=== PATIENT | male | born 1990 | race African-American/Black ===

== ENCOUNTER 2020-03-13 23:19 | Emergency (ER) | payer MEDICAID ==
[~2020-03-13] VITALS: Ht 182.9 cm; Wt 114.0 kg
[2020-03-13 23:29] VITALS: BP 129/91
[2020-03-14] MEDS ORDERED: LIDOCAINE 1%/EPI 1:100,000 10 ML VIAL IJ ONE (03:45)
[2020-03-14] MEDS ORDERED: ACETAMINOPHEN WITH CODEINE 300/30MG TABLET PO ONE (03:45)
[2020-03-14] MEDS ORDERED: TETANUS, DIPHTHERIA, PERTUSSIS VAC/PF 0.5ML (>7YR OLD) IM ONE (03:45)
[2020-03-14] MEDS ORDERED: BACITRACIN ZINC OINT UDPKT TOP ONE (03:45)
== END 2020-03-14 05:15 | disposition home or self-care (01) ==
LOC: ER 23:19
DX: S81.812A Laceration without foreign body, left lower leg, initial encounter (principal); W26.8XXA Contact with other sharp object(s), not elsewhere classified, initial encounter; Y93.89 Activity, other specified; Y92.89 Other specified places as the place of occurrence of the external cause
CPT/HCPCS: 12002; 73562; 90471; 90715; 99283; J3490

== ENCOUNTER 2020-03-17 15:15 | Emergency (ER) | payer MEDICAID ==
[~2020-03-17] VITALS: Ht 182.9 cm; Wt 111.0 kg
[2020-03-17 15:20] VITALS: BP 141/88
== END 2020-03-17 15:59 | disposition home or self-care (01) ==
LOC: ER 15:15
DX: S81.812D Laceration without foreign body, left lower leg, subsequent encounter (principal); X58.XXXD Exposure to other specified factors, subsequent encounter; J45.909 Unspecified asthma, uncomplicated
CPT/HCPCS: 99281

== ENCOUNTER 2020-04-01 10:24 | Emergency (ER) | payer MEDICAID ==
[~2020-04-01] VITALS: Ht 182.9 cm; Wt 111.0 kg
[2020-04-01 10:40] VITALS: BP 133/86
== END 2020-04-01 11:38 | disposition home or self-care (01) ==
LOC: ER 10:24
DX: Z48.02 Encounter for removal of sutures (principal)
CPT/HCPCS: 99282

== ENCOUNTER 2020-08-11 17:30 | Emergency (ER) | payer MEDICAID | END 2020-08-11 17:37 | disposition left against medical advice (07) | LOC: ER 17:30 | DX: R06.02 Shortness of breath (principal); Z53.21 Procedure and treatment not carried out due to patient leaving prior to being seen by health care provider ==

== ENCOUNTER 2022-08-23 14:07 | Emergency (ER) | payer MEDICAID ==
[~2022-08-23] VITALS: Ht 182.9 cm; Wt 106.0 kg
[2022-08-23 14:19] VITALS: BP 148/100
[2022-08-23] MEDS ORDERED: NAPR-1176 PO (17:48)
[2022-08-23] MEDS ORDERED: BUTE12CR2 TP (17:48)
[2022-08-23] MEDS ORDERED: ALBU6.7H3 INH (17:48)
== END 2022-08-23 18:08 | disposition home or self-care (01) ==
LOC: ER 14:07
DX: S90.31XA Contusion of right foot, initial encounter (principal); W21.31XA Struck by shoe cleats, initial encounter; Y93.89 Activity, other specified; Y92.89 Other specified places as the place of occurrence of the external cause; Y99.8 Other external cause status; J45.909 Unspecified asthma, uncomplicated
CPT/HCPCS: 73630; 99283

== ENCOUNTER 2023-04-07 11:22 | Emergency (ER) | payer MEDICAID ==
[~2023-04-07] VITALS: Ht 185.4 cm; Wt 98.0 kg
[~2023-04-07 11:22] MED LIST: ALBU6.7H3 INH; BUTE12CR2 TP; NAPR-1176 PO
[2023-04-07 11:28] VITALS: BP 142/99; PULSE 66; RESP 16; TEMP 98.7; O2SAT 96
[2023-04-07] MEDS ORDERED: ALBU6.7H15 INH (12:34)
== END 2023-04-07 13:19 | disposition home or self-care (01) ==
LOC: ER 11:22
DX: K62.5 Hemorrhage of anus and rectum (principal); J45.909 Unspecified asthma, uncomplicated
CPT/HCPCS: 99283

== ENCOUNTER 2023-08-19 09:37 | Emergency (ER) | payer MEDICAID ==
[~2023-08-19] VITALS: Ht 182.9 cm; Wt 100.0 kg
[~2023-08-19 09:37] MED LIST changes: +ALBU6.7H15 INH
[2023-08-19 09:52] VITALS: BP 137/97; RESP 18; TEMP 98; O2SAT 99
[2023-08-19 09:53] VITALS: PULSE 88
[2023-08-19] MEDS ORDERED: ALBU6.7H15 INH (10:43)
== END 2023-08-19 10:10 | disposition home or self-care (01) ==
LOC: ER 09:37
DX: R06.02 Shortness of breath (principal); J45.909 Unspecified asthma, uncomplicated; Z76.0 Encounter for issue of repeat prescription
CPT/HCPCS: 99281

== ENCOUNTER 2023-12-23 02:19 | Emergency (ER) | payer MEDICAID ==
[~2023-12-23] VITALS: Ht 185.4 cm; Wt 82.0 kg
[2023-12-23 02:21] VITALS: TEMP 98.2
[2023-12-23 03:33] LABS: BASOPHILS % 0.8 % (0.0-2.0); EOSINOPHILS % 6.6 % (0.0-5.0); HEMATOCRIT. 47.2 % (42.0-52.0); HEMOGLOBIN. 15.7 g/dL (14.0-18.0); LYMPHOCYTES % 34.5 % (20.0-50.0); MEAN CORPUSCULAR HEMOGLOBIN 31.3 pg (28.0-32.0); MEAN CORPUSCULAR HGB CONC 33.2 g/dL (31.0-37.0); MEAN CORPUSCULAR VOLUME 94.2 fL (80.0-94.0); MONOCYTES % 8.6 % (2.0-8.0); NEUTROPHILS % 49.5 % (40.0-76.0); PLATELET 212 x1000/uL (130-400); RED BLOOD CELL COUNT 5.01 mill/uL (4.7-6.1); RED CELL DISTRIBUTION WIDTH 14.5 % (11.6-14.6)
[2023-12-23 03:41] LABS: CHLORIDE 108 mEq/L (98-107); POTASSIUM 3.3 mEq/L (3.5-5.1); SODIUM 138 mEq/L (136-145)
[2023-12-23 03:42] LABS: CALCIUM 9.1 mg/dL (8.7-10.4); CARBON DIOXIDE 23 mEq/L (21-32)
[2023-12-23 03:47] LABS: CREATININE 0.9 mg/dL (0.6-1.3); GLUCOSE 94 mg/dL (70-105); UREA NITROGEN BLOOD 10 mg/dL (9-23)
[2023-12-23] MEDS: METHYLPREDNISOLONE SOD SUCC 125MG/2ML (ACT-O-VIAL) IV STA (03:58)
[2023-12-23] MEDS: MAGNESIUM 2 G PREMIX 50 ML IV STA (03:58)
[2023-12-23 04:09] VITALS: PULSE 86; RESP 22; O2SAT 96
[2023-12-23] MEDS: IPRATROPIUM BROMIDE (0.02%) 0.5MG/2.5ML NEB HHN STA (04:09)
[2023-12-23] MEDS: ALBUTEROL (0.083%) 2.5MG/3ML NEB HHN STA (04:10)
[2023-12-23] MEDS ORDERED: P20 MT (06:26)
[2023-12-23] MEDS ORDERED: ALBU6.7H15 INH (06:26)
[2023-12-23 06:46] VITALS: BP 133/67; PULSE 83; RESP 17
== END 2023-12-23 06:47 | disposition home or self-care (01) ==
LOC: ER 02:19
DX: J45.909 Unspecified asthma, uncomplicated (principal); F12.90 Cannabis use, unspecified, uncomplicated
CPT/HCPCS: 80048; 85025; 36415; 71045; 93005; 96365; 96375; 99285; J3475; J2919; Z7610 ×3

== ENCOUNTER 2024-01-18 10:11 | Emergency (ER) | payer MEDICAID ==
[~2024-01-18] VITALS: Ht 182.9 cm; Wt 104.3 kg
[~2024-01-18 10:11] MED LIST changes: +P20 MT
[2024-01-18 10:26] VITALS: BP 146/105; PULSE 77; RESP 16; TEMP 98.1; O2SAT 98
[2024-01-18] MEDS ORDERED: ALBU6.7H15 INH (11:01)
[2024-01-18] MEDS ORDERED: P50 MT (11:01)
[2024-01-18] MEDS ORDERED: ALBU2.5V13 NEB (11:01)
== END 2024-01-18 11:26 | disposition home or self-care (01) ==
LOC: ER 10:20
DX: J45.901 Unspecified asthma with (acute) exacerbation (principal); Z76.0 Encounter for issue of repeat prescription; F12.90 Cannabis use, unspecified, uncomplicated
CPT/HCPCS: 99283

== ENCOUNTER 2024-03-19 11:44 | Emergency (ER) | payer MEDICAID ==
[~2024-03-19] VITALS: Ht 182.9 cm; Wt 97.5 kg
[~2024-03-19 11:44] MED LIST changes: +ALBU2.5V13 NEB; +P50 MT
[2024-03-19 11:53] VITALS: BP 138/87; O2SAT 96
[2024-03-19] MEDS: IPRATROPIUM BROMIDE (0.02%) 0.5MG/2.5ML NEB HHN STA (12:45)
[2024-03-19 12:46] VITALS: PULSE 72; RESP 20
[2024-03-19] MEDS: ALBUTEROL (0.083%) 2.5MG/3ML NEB HHN STA (12:46)
[2024-03-19] MEDS: PREDNISONE 20MG TABLET PO STA (13:06)
[2024-03-19] MEDS ORDERED: ALBU18HF2 IH (13:21)
[2024-03-19] MEDS ORDERED: P20 MT (13:21)
[2024-03-19] MEDS ORDERED: ALBU05 NEB (13:21)
[2024-03-19 13:43] VITALS: PULSE 72; RESP 20; TEMP 36.78072; O2SAT 96
== END 2024-03-19 13:47 | disposition home or self-care (01) ==
LOC: ER 11:44
DX: J45.901 Unspecified asthma with (acute) exacerbation (principal); F12.90 Cannabis use, unspecified, uncomplicated; Z79.899 Other long term (current) drug therapy; Z76.0 Encounter for issue of repeat prescription
CPT/HCPCS: 94644; 99285; J7512; Z7610 ×2; 94640

== ENCOUNTER 2024-05-10 16:04 | Inpatient (IN) | payer MEDICAID ==
[~2024-05-10] VITALS: Ht 182.9 cm; Wt 102.1 kg
[~2024-05-10 16:04] MED LIST changes: +ALBU05 NEB; +ALBU18HF2 IH
[2024-05-10 19:07] LABS: HEMATOCRIT. 50.9 % (42.0-52.0); HEMOGLOBIN. 17.3 g/dL (14.0-18.0); MEAN CORPUSCULAR HEMOGLOBIN 31.8 pg (28.0-32.0); MEAN CORPUSCULAR HGB CONC 33.9 g/dL (31.0-37.0); MEAN CORPUSCULAR VOLUME 93.9 fL (80.0-94.0); MEAN PLATELET VOLUME 9.1 fl (7.4-10.4); PLATELET 222 x1000/uL (130-400); RED BLOOD CELL COUNT 5.42 mill/uL (4.7-6.1); RED CELL DISTRIBUTION WIDTH 13.8 % (11.6-14.6)
[2024-05-10 19:09] LABS: DIFFERENTIAL COMMENT 1
[2024-05-10 19:15] LABS: CHLORIDE 105 mEq/L (98-107); POTASSIUM 3.7 mEq/L (3.5-5.1); SODIUM 138 mEq/L (136-145)
[2024-05-10] MEDS: ALBUTEROL (0.083%) 2.5MG/3ML NEB HHN SCH (19:15)
[2024-05-10] MEDS: IPRATROPIUM BROMIDE (0.02%) 0.5MG/2.5ML NEB HHN STA (19:15)
[2024-05-10] MEDS: DEXAMETHASONE 4MG/ML 1ML VIAL IV ONE (19:15)
[2024-05-10 19:16] LABS: CALCIUM 9.9 mg/dL (8.7-10.4); CARBON DIOXIDE 25 mEq/L (21-32)
[2024-05-10 19:21] LABS: GLUCOSE 118 mg/dL (70-105); UREA NITROGEN BLOOD 11 mg/dL (9-23)
[2024-05-10 19:29] LABS: ATYPICAL LYMPHOCYTES 7
[2024-05-10 19:30] LABS: PLATELET ESTIMATE NORMAL
[2024-05-10 20:39] VITALS: PULSE 78; RESP 20; O2SAT 98
[2024-05-10 20:49] VITALS: PULSE 76; RESP 20; O2SAT 98
[2024-05-11] VITALS (12 sets, daily range): BP systolic 122–160; BP diastolic 77–97; PULSE 67–91; RESP 16–22; TEMP 32.5026–36.89184; O2SAT 92–99
[2024-05-11] MEDS ORDERED: ONDANSETRON HCL 4MG/2ML INJ IV PRN
[2024-05-11] MEDS ORDERED: HYDROCODONE/ACETAMINOPHEN 5/325MG TABLET PO PRN
[2024-05-11] MEDS: ACETAMINOPHEN 325MG TABLET PO PRN (00:01)
[2024-05-11] MEDS ORDERED: ALBU18HF2 (00:42)
[2024-05-11] MEDS: CLONIDINE 0.1MG TABLET PO PRN (01:05)
[2024-05-11] MEDS: METHYLPREDNISOLONE SOD SUCC 40MG/ML (ACT-O-VIAL) IV SCH (01:19)
[2024-05-11] MEDS: IPRATROPIUM/ALBUTEROL 0.5-3(2.5)MG/3ML NEB HHN SCH (03:34)
[2024-05-11] MEDS: ENOXAPARIN 30MG/0.3ML SYR SUBCUT SCH (08:45)
[2024-05-11 09:18] LABS: *AMPHETAMINES SCREEN URINE NEGATIVE (NEGATIVE); *BENZODIAZEPINES SCREEN URINE NEGATIVE (NEGATIVE)
[2024-05-11 09:19] LABS: *BARBITURATES SCREEN URINE NEGATIVE (NEGATIVE); *COCAINE SCREEN URINE NEGATIVE (NEGATIVE); CANNABINOID URINE SCREEN PRESUMPTIVE POSITIVE (NEGATIVE); ECSTASY MDMA SCREEN URINE NEGATIVE (NEGATIVE); METHADONE URINE SCREEN NEGATIVE (NEGATIVE); OPIATES URINE SCREEN NEGATIVE (NEGATIVE); PHENCYCLIDINE URINE SCREEN NEGATIVE (NEGATIVE)
[2024-05-11 14:28] LABS: BASOPHILS % 0.3 % (0.0-2.0); EOSINOPHILS % 0.1 % (0.0-5.0); HEMATOCRIT. 51.8 % (42.0-52.0); HEMOGLOBIN. 17.3 g/dL (14.0-18.0); LYMPHOCYTES % 13.8 % (20.0-50.0); MEAN CORPUSCULAR HEMOGLOBIN 31.4 pg (28.0-32.0); MEAN CORPUSCULAR HGB CONC 33.5 g/dL (31.0-37.0); MEAN CORPUSCULAR VOLUME 93.8 fL (80.0-94.0); MEAN PLATELET VOLUME 8.9 fl (7.4-10.4); MONOCYTES % 3.7 % (2.0-8.0); NEUTROPHILS % 82.1 % (40.0-76.0); PLATELET 233 x1000/uL (130-400); RED BLOOD CELL COUNT 5.52 mill/uL (4.7-6.1); RED CELL DISTRIBUTION WIDTH 13.5 % (11.6-14.6); WHITE BLOOD COUNT 6.4 x1000/uL (4.5-11.0)
[2024-05-11 14:33] LABS: CHLORIDE 107 mEq/L (98-107); SODIUM 138 mEq/L (136-145)
[2024-05-11 14:34] LABS: CALCIUM 10.3 mg/dL (8.7-10.4); CARBON DIOXIDE 23 mEq/L (21-32)
[2024-05-11 14:39] LABS: CREATININE 1.1 mg/dL (0.6-1.3); GLUCOSE 106 mg/dL (70-105); UREA NITROGEN BLOOD 14 mg/dL (9-23)
[2024-05-11] MEDS ORDERED: NALOXONE HCL 0.4MG/ML VIAL IV PRN (16:00)
[2024-05-11] MEDS: MONTELUKAST SODIUM 10MG TABLET PO SCH (16:49)
[2024-05-11] MEDS: ZOLPIDEM TARTRATE 5MG TABLET PO PRN (21:29)
[2024-05-12] VITALS (7 sets, daily range): BP systolic 115–132; BP diastolic 74–90; PULSE 73–94; RESP 18–20; TEMP 36.50292–37.61412; O2SAT 94–98
[2024-05-12] MEDS: METHYLPREDNISOLONE SOD SUCC 40MG/ML (ACT-O-VIAL) IV SCH (00:12)
[2024-05-12] MEDS: BUDESONIDE 0.5MG/2ML NEB INH SCH (04:00)
[2024-05-12] MEDS: FAMOTIDINE 20MG/2ML VIAL IV SCH (08:14)
[2024-05-12] MEDS ORDERED: MONT-46 MT (13:22)
[2024-05-12] MEDS ORDERED: P20 MT (13:22)
[2024-05-12] MEDS ORDERED: FLUT1DIS3 INH (13:22)
[2024-05-12] MEDS ORDERED: ALBU18HF2 IH (13:22)
== END 2024-05-12 15:33 | disposition home or self-care (01) | DRG 141 ==
LOC: ER 16:04 → MICUSO 20:38 → EDBEDREQ 20:46 → EDBEDREQTM 20:46 → 8WST 05-11 06:10
PROVIDERS: ADMIT Internal Medicine; ATTEND Internal Medicine
DX: J45.901 Unspecified asthma with (acute) exacerbation (principal); F19.90 Other psychoactive substance use, unspecified, uncomplicated
CPT/HCPCS: 36415; 71045; 80048; 80305; 85025; 93005; 94640; 99291; J1100; J1650; J2920; J3490; J7626

== ENCOUNTER 2025-03-07 11:39 | Emergency (ER) | payer MEDICAID ==
[~2025-03-07] VITALS: Ht 182.9 cm; Wt 75.0 kg
[~2025-03-07 11:39] MED LIST changes: -ALBU05 NEB; -ALBU2.5V13 NEB; -ALBU6.7H15 INH; -ALBU6.7H3 INH; -BUTE12CR2 TP; +FLUT1DIS3 INH; +MONT-46 MT; -NAPR-1176 PO
[2025-03-07 11:51] VITALS: TEMP 36.7
[2025-03-07] MEDS ORDERED: P20 PO (12:23)
[2025-03-07] MEDS ORDERED: ALBU18HF2 IH (12:23)
[2025-03-07] MEDS ORDERED: IPRA3AMP9 NEB (12:23)
[2025-03-07] MEDS ORDERED: TIOT18CA3 IH (12:23)
[2025-03-07] MEDS: PREDNISONE 20MG TABLET PO STA (12:40)
[2025-03-07 12:46] VITALS: PULSE 74; RESP 18; O2SAT 98
[2025-03-07] MEDS: IPRATROPIUM/ALBUTEROL 0.5-3(2.5)MG/3ML NEB HHN ONE (12:46)
[2025-03-07 13:06] VITALS: BP 151/102; PULSE 80; RESP 14; O2SAT 100
== END 2025-03-07 13:12 | disposition home or self-care (01) ==
LOC: ER 11:39
DX: J45.901 Unspecified asthma with (acute) exacerbation (principal); Z79.51 Long term (current) use of inhaled steroids; Z79.52 Long term (current) use of systemic steroids; Z79.899 Other long term (current) drug therapy; Z91.148 Patient's other noncompliance with medication regimen for other reason
CPT/HCPCS: 94640; 99283; J7512; Z7610 ×3; 94070; 94664

== ENCOUNTER 2025-04-23 15:36 | Emergency (ER) | payer MEDICAID, OTHER ==
[~2025-04-23] VITALS: Ht 182.9 cm; Wt 95.0 kg
[~2025-04-23 15:36] MED LIST changes: +IPRA3AMP9 NEB; +P20 PO; +TIOT18CA3 IH
[2025-04-23 15:47] VITALS: O2SAT 95
[2025-04-23 15:53] VITALS: BP 151/92; PULSE 87; RESP 16; TEMP 36.6; O2SAT 97
== END 2025-04-23 20:02 | disposition left against medical advice (07) ==
LOC: ER 15:36
DX: J45.909 Unspecified asthma, uncomplicated (principal); Z79.899 Other long term (current) drug therapy
CPT/HCPCS: 93005; 99281